=== PATIENT | female | born 1940 | race Asian ===

== ENCOUNTER 2018-04-25 19:58 | Inpatient (IN) | payer OTHER ==
[~2018-04-25] VITALS: Ht 147.3 cm; Wt 51.8 kg
[~2018-04-25 19:58] MED LIST: AMITRIPTYLINE H25 MG PO; ANT25 PO; COZAAR100 MG PO; ECOTRIN81 M2 PO; [UNRECOGNIZED DRUG - OTHER]
[2018-04-25 20:00] VITALS: Ht 147.3 cm; Wt 51.8 kg
[2018-04-25 21:01] LABS: BASOPHIL % 0.7 % (0-2); PLATELET COUNT 230 x10^3mcL (130-400); RED CELL DISTRIBUTION WIDTH 13.3 % (11.5-14.5)
[2018-04-25 21:15] LABS: ALBUMIN 3.9 g/dL (3.4-5.0); ALKALINE PHOSPHATASE 48 U/L (46-116); ALT/SGPT 12 U/L (14-59); AST/SGOT 33 U/L (15-37); BILIRUBIN TOTAL 0.45 mg/dL (0.20-1.00); CALCIUM 8.4 mg/dL (8.5-10.1); CARBON DIOXIDE 21.4 mmol/L (21-32); CHLORIDE SERUM 102 mmol/L (98-107); CREATININE SERUM 0.9 mg/dL (0.6-1.0); GLUCOSE SERUM 180 mg/dL (74-106); SODIUM SERUM 136 mmol/L (136-145); TOTAL PROTEIN, SERUM 7.3 g/dL (6.4-8.2)
[2018-04-25 21:17] LABS: POTASSIUM SERUM 2.5 mmol/L (3.5-5.1)
[2018-04-25 21:23] LABS: CK-MB 10.6 ng/mL (0-3.6)
[2018-04-25 21:39] LABS: microscopic required? NO
[2018-04-25] MEDS ORDERED: RALOXIFENE HCL60 MG PO (21:54)
[2018-04-25 21:56] LABS: UA SPECIFIC GRAVITY 1.015 (1.005-1.035); urine erythrocyte NEGATIVE (NEGATIVE)
[2018-04-25] MEDS ORDERED: FENOFIBRATE134 MG PO (23:31)
[2018-04-25 23:45] VITALS: BP 178/75
[2018-04-26] VITALS (7 sets, daily range): BP systolic 126–185; BP diastolic 62–84
[2018-04-26 02:02] LABS: AMPHETAMINE QUAL UR NONE DETECTED (See below)
[2018-04-26 02:04] LABS: CHOLESTEROL/HDL RATIO 2.9; MAGNESIUM 1.7 mg/dL (1.8-2.4); PHOSPHOROUS 1.9 mg/dL (2.5-4.9)
[2018-04-26 02:07] LABS: T3 TOTAL 0.96 ng/mL
[2018-04-26 02:11] LABS: FREE T4 1.16 ng/dL (0.76-1.46); T4(THYROXINE) 8.7 ug/dL (4.7-13.3)
[2018-04-26 06:10] LABS: IRON 53 ug/dL (50-170); TOTAL IRON BINDING CAPACITY 344 ug/dL (250-450)
[2018-04-26 06:22] LABS: CALCIUM 7.9 mg/dL (8.5-10.1); CARBON DIOXIDE 24.4 mmol/L (21-32); CHLORIDE SERUM 109 mmol/L (98-107); CREATININE SERUM 0.6 mg/dL (0.6-1.0); GLUCOSE SERUM 98 mg/dL (74-106); MAGNESIUM 1.9 mg/dL (1.8-2.4); PHOSPHOROUS 4.4 mg/dL (2.5-4.9); POTASSIUM SERUM 4.7 mmol/L (3.5-5.1); SODIUM SERUM 142 mmol/L (136-145)
[2018-04-26 06:38] LABS: CK-MB 6.9 ng/mL (0-3.6)
[2018-04-26 07:04] LABS: BASOPHIL % 0.3 % (0-2); PLATELET COUNT 226 x10^3mcL (130-400); RED BLOOD CELLS 3.55 M/mm3 (4.10-5.10); RED CELL DISTRIBUTION WIDTH 13.4 % (11.5-14.5)
== END 2018-04-26 19:00 | disposition home or self-care (01) | DRG 304 ==
LOC: ED 19:58 → DU 22:41
PROVIDERS: Emergency Medicine; Internal Medicine
DX: I16.0 Hypertensive urgency (principal); N17.0 Acute kidney failure with tubular necrosis; K56.7 Ileus, unspecified; E87.6 Hypokalemia; E83.39 Other disorders of phosphorus metabolism; E83.42 Hypomagnesemia; R73.03 Prediabetes; D64.9 Anemia, unspecified; E02 Subclinical iodine-deficiency hypothyroidism; Z68.23 Body mass index [BMI] 23.0-23.9, adult
CPT/HCPCS: 36600; 83880; 84439; G0480; J2405; J3480; J3490; J7030; J7050; Q0092